=== PATIENT | female | born 1960 | race Caucasian/White ===

== ENCOUNTER 2020-05-21 23:18 | Emergency (ER) | payer BC ==
[2020-05-21 23:29] VITALS: BP 131/77; PULSE 101
[2020-05-21] MEDS ORDERED: Ondansetron 4 MG/2 ML SDV IVPUSH ONE (23:30)
[2020-05-21] MEDS ORDERED: Sodium Chloride 0.9% 1,000 ML IV ONE (23:31)
[2020-05-21] MEDS ORDERED: HYDROmorphone 1 MG/ML Syringe IVPUSH ONE (23:45)
[2020-05-21 23:54] LABS: ANION GAP 13.6 mEq/L (7-13); CHLORIDE,CL 101 mmol/L (98-107); SODIUM,NA 138 mmol/L (136-145)
--- NOTE | 2020-05-21 23:55 | EDM.PDOC ---
ED HPI GENERAL MEDICAL PROBLEM - General Chief Complaint: Abdominal Pain Stated Complaint: ABD PAIN Time Seen by Provider: 05/21/20 23:23 Source of Information: Reports: Patient, RN History Limitations: Reports: No Limitations - History of Present Illness INITIAL COMMENTS - FREE TEXT/NARRATIVE: Patient presents to the ER with abdominal cramping that began about 6 hours. Patient reports she was okay all day and had supper about 5 PM and pain began one hour later. She reports nausea and vomiting. She vomited about 100 mls in the ER. Denies any diarrhea or constipation. Reports she ate pizza, carrots and cucumbers for supper. States nobody at home is sick. Denies any fevers or chills, shortness of breath, palpitations or chest pain.Reports a surgical history of hysterectomy one year ago. Still has her appendix and gallbladder.Denies any history of abdominal problems. No pain Modalities implemented at home. Right Lower Abdomen Pain Score (Numeric/FACES): 10 - Related Data Allergies Allergy/AdvReac Type Severity Reaction Status Date / Time No Known Allergies Allergy Verified 05/21/20 23:27 Home Meds: Home Meds Venlafaxine HCl [Venlafaxine ER] 37.5 mg PO DAILY 05/21/20 [History] Past Medical History - Past Health History Medical/Surgical History: Denies Medical/Surgical History Social & Family History - Tobacco Use Smoking Status *Q: Never Smoker Second Hand Smoke Exposure: No - Recreational Drug Use Recreational Drug Use: No ED ROS GENERAL - Review of Systems Review Of Systems: Comprehensive ROS is negative, except as noted in HPI. ED EXAM, GI/ABD - Physical Exam Exam: See Below Exam Limited By: No Limitations General Appearance: Alert, Moderate Distress Respiratory/Chest: No Respiratory Distress Cardiovascular: Normal Peripheral Pulses, Regular Rate, Rhythm, No Edema, No Gallop, No JVD, No Murmur, No Rub GI/Abdominal Exam: Normal Bowel Sounds, Soft, Guarding, Tender (with ligh palpation to the lower/ periumbilical area) (Female) Exam: Deferred Rectal (Female) Exam: Deferred Extremities: Normal Inspection Neurological: Alert, Oriented Psychiatric: Anxious (due to pain) Skin Exam: Warm Lymphatic: No Adenopathy Course - Vital Signs Last Recorded V/S: Last Vital Signs Temp 97 F 09/03/20 23:21 Pulse 101 H 05/21/20 23:21 Resp 20 05/21/20 23:21 BP 131/77 05/21/20 23:21 Pulse Ox 96 05/21/20 23:21 - Orders/Labs/Meds Orders: Active Orders 24 hr Category Date Time Status DRUG SCREEN URINE BIORAD [URCHEM] Stat Lab 05/21/20 23:38 Ordered UA W/SRUTHI RFLX IF INDICATED [URIN] Stat Lab 05/21/20 23:38 Ordered D5 1/2 NS w/ 20 mEq/L KCl 1,000 ml Med 05/22/20 01:45 Active IV ASDIRECTED Medication Orders Potassium Chloride/Dextrose/Sod Cl (D5 1/2 Ns W/ 20 Meq/L Kcl) 1,000 mls @ 150 mls/hr IV ASDIRECTED KOKO Last Admin: 05/22/20 02:08 Dose: 150 mls/hr Documented by: BEN Labs: Laboratory Tests 05/21/20 05/21/20 Range/Units 23:30 23:30 WBC 9.9 (5.0-10.0) 10^3/uL RBC 4.66 (4.2-5.4) 10^6/uL Hgb 14.2 (12.0-16.0) g/dL Hct 42.6 (37.0-47.0) % MCV 91.4 (80-100) fL MCH 30.5 (27.0-34.0) pg MCHC 33.3 (33.0-35.0) g/dL Plt Count 198 (150-450) 10^3/uL Neut % (Auto) 82.6 H (42.2-75.2) % Lymph % (Auto) 12.4 L (20.5-50.1) % Saunders % (Auto) 4.8 (2-8) % Eos % (Auto) 0.1 L (1.0-3.0) % Baso % (Auto) 0.1 (0.0-1.0) % Sodium 138 (136-145) mmol/L Potassium 3.6 (3.5-5.1) mmol/L Chloride 101 (98-107) mmol/L Carbon Dioxide 27 (21-32) mmol/L Anion Gap 13.6 H (7-13) mEq/L BUN 15 (7-18) mg/dL Creatinine 0.89 (0.55-1.02) mg/dL Est Cr Clr Drug Dosing 58.77 mL/min Estimated GFR (MDRD) > 60 BUN/Creatinine Ratio 16.9 (No establ ref range) Glucose 164 H (74-99) mg/dL Calcium 8.7 (8.5-10.1) mg/dL Total Bilirubin 0.4 (0.2-1.0) mg/dL AST 26 (15-37) U/L ALT 55 (14-59) U/L Alkaline Phosphatase 95 (46-116) U/L Total Protein 7.8 (6.4-8.2) g/dL Albumin 4.0 (3.4-5.0) g/dL Globulin 3.8 Albumin/Globulin Ratio 1.1 Meds: Medications Generic Name Dose Route Start Last Admin Trade Name Freq PRN Reason Stop Dose Admin Potassium Chloride/Dextrose/Sod Cl 1,000 mls @ 150 mls/hr 05/22/20 01:45 05/22/20 02:08 D5 1/2 Ns W/ 20 Meq/L Kcl IV 150 mls/hr ASDIRECTED KOKO Administration Discontinued Medications Generic Name Dose Route Start Last Admin Trade Name Freq PRN Reason Stop Dose Admin Hydromorphone HCl 0.5 mg 05/21/20 23:45 05/21/20 23:50 Dilaudid IVPUSH 05/21/20 23:46 0.5 mg ONETIME ONE Administration Hydromorphone HCl 0.5 mg 05/22/20 00:11 05/22/20 00:27 Dilaudid IVPUSH 05/22/20 00:12 0.5 mg ONETIME ONE Administration Hydromorphone HCl 1 mg 05/22/20 01:30 05/22/20 01:40 Dilaudid IVPUSH 05/22/20 01:31 1 mg ONETIME ONE Administration Sodium Chloride 1,000 mls @ 999 mls/hr 05/21/20 23:31 05/21/20 23:34 Normal Saline IV 05/22/20 00:31 999 mls/hr .BOLUS ONE Administration Iopamidol 100 ml 05/22/20 00:05 05/22/20 00:08 Isovue-300 (61%) IVPUSH 05/22/20 00:06 100 ml ONETIME ONE Administration Ondansetron HCl 4 mg 05/21/20 23:30 05/21/20 23:35 Zofran IVPUSH 05/21/20 23:31 4 mg ONETIME ONE Administration - Re-Assessments/Exams Free Text/Narrative Re-Assessment/Exam: Reviewed exam Findings and lab results with patient. Dilaudid 0.5 mg x 2 and 1 mg administered with IV fluids. CT scan abdomen done and results reviewed with patient. Consulted [facility] and [facility] one call and there were no beds available. NG tube placed. Called [facility] one call and review patient's case with who [id number] her for transfer. Patient in agreement to plan. Departure - Departure Time of Disposition: 03:08 Disposition: DC/Tfer to Acute Hospital 02 Condition: Fair Clinical Impression: SBO (small bowel obstruction) - Discharge Information Forms: ED Department Discharge, Interfacility Transfer ISA Sepsis Event Note (ED) - Evaluation Sepsis Screening Result: No Definite Risk - Focused Exam Vital Signs: Vital Signs Temp Pulse Resp BP Pulse Ox 05/21/20 23:21 97 F 101 H 20 131/77 96 - My Orders Last 24 Hours: My Active Orders 05/21/20 23:38 DRUG SCREEN URINE BIORAD [URCHEM] Stat UA W/SRUTHI RFLX IF INDICATED [URIN] Stat 05/22/20 01:45 D5 1/2 NS w/ 20 mEq/L KCl 1,000 ml IV ASDIRECTED - Assessment/Plan Last 24 Hours: My Active Orders 05/21/20 23:38 DRUG SCREEN URINE BIORAD [URCHEM] Stat UA W/SRUTHI RFLX IF INDICATED [URIN] Stat 05/22/20 01:45 D5 1/2 NS w/ 20 mEq/L KCl 1,000 ml IV ASDIRECTED
[2020-05-22] MEDS ORDERED: Iopamidol 612 MG/ML 100 ML Bottle IVPUSH ONE (00:05)
[2020-05-22] MEDS ORDERED: HYDROmorphone 0.5 MG/0.5 ML Syringe IVPUSH ONE (00:11)
--- NOTE | 2020-05-22 01:20 | CT ---
PROCEDURE INFORMATION: Exam: CT Abdomen And Pelvis With Contrast Exam date and time: 05/22/2020 12:07 AM Age: 59 years old Clinical indication: Vomiting and other: Pain; Additional info: Lower abdomen TECHNIQUE: Imaging protocol: Computed tomography of the abdomen and pelvis with intravenous contrast. Radiation optimization: All CT scans at this facility use at least one of these dose optimization techniques: automated exposure control; mA and/or kV adjustment per patient size (includes targeted exams where dose is matched to clinical indication); or iterative reconstruction. Contrast material: [id number]; Contrast volume: 75 ml; Contrast route: INTRAVENOUS (IV); COMPARISON: CT Abdomen Pelvis w Cont 10/28/2016 8:55 AM FINDINGS: Liver: 6.9 x 7.1 cm large RIGHT hepatic lobe hemangioma. 7 mm low-attenuation lesion within segment 6 of the liver (image 62, series 2), likely small hemangioma. Images from prior MRI dated 11/02/2016 are not available for review. Recommend correlation with MRI. Gallbladder and bile ducts: Normal. No calcified stones. No ductal dilation. Pancreas: Normal. No ductal dilation. Spleen: Normal. No splenomegaly. Adrenals: Normal. No mass. Kidneys and ureters: Normal. No hydronephrosis. Stomach and bowel: Fluid-filled dilated loops of small bowel with transition point within the lower mid abdomen. Distal small bowel is decompressed. Appendix: Appendix is visualized and is normal. Intraperitoneal space: Small amount of free fluid within the pelvis. Vasculature: Unremarkable. No abdominal aortic aneurysm. Lymph nodes: Unremarkable. No enlarged lymph nodes. Bladder: Unremarkable as visualized. Reproductive: Status post interval hysterectomy. Bones/joints: Degenerative changes throughout the visualized thoracic and lumbar spine. Soft tissues: Unremarkable. IMPRESSION: 1. Findings consistent with small bowel obstruction as described above. 2. No CT findings of acute appendicitis. 3. 6.9 x 7.1 cm large RIGHT hepatic lobe hemangioma. 7 mm low-attenuation lesion within segment 6 of the liver (image 62, series 2), likely small hemangioma. Images from prior MRI dated 11/02/2016 are not available for review. Recommend correlation with MRI. 4. Status post interval hysterectomy. 5. Small amount of free fluid within the pelvis.
[2020-05-22] MEDS ORDERED: HYDROmorphone 1 MG/ML Syringe IVPUSH ONE ×2 (01:30→03:31)
[2020-05-22] MEDS ORDERED: D5 1/2 NS w/ 20 mEq/L KCl 1,000 ML IV SCH (01:45)
== END 2020-05-22 03:51 ==
LOC: DL.ED 23:18
DX: K56.609 Unspecified intestinal obstruction, unspecified as to partial versus complete obstruction (principal); Z79.899 Other long term (current) drug therapy
CPT/HCPCS: 36415; 43752; 74177; 80053; 85025; 96361; 96365; 96366; 96375; 96376; 99285; J1170; J2405; J3480; J7030; Q9967

== ENCOUNTER 2021-01-27 06:30 | Day surgery (SDC) | payer BC ==
[~2021-01-27 06:30] MED LIST: Dextrose 5%-0.45% NaCl 1,000 ML IV SCH; Midazolam 1 MG/ML 2 ML SDV ONE; Sodium Chloride 0.9% 10 ML Syringe FLUSH PRN; fentaNYL 100 MCG/2 ML SDV ONE
[2021-01-27] MEDS ORDERED: Midazolam 1 MG/ML 2 ML SDV IV ONE ×7 (06:31→07:08)
[2021-01-27] MEDS ORDERED: fentaNYL 100 MCG/2 ML SDV IV ONE ×4 (06:31→07:11)
--- NOTE | 2021-01-27 08:00 | OR ---
DATE: 01/27/2021 PROCEDURES: Total colonoscopy, NBI, and cold snare polypectomy. INSTRUMENT USED: [id number]-[id number] Olympus video colonoscope. PREMEDICATIONS: Fentanyl 125 mcg intravenous, Versed 4 mg intravenous. The procedure was done under pulse oximetry, BP recording, and equipment monitor phototypesetting. INDICATION: The patient with positive FIT. Colonoscopic examination is done for detection of any polypoid lesions and removal, endoscopic hemostasis therapy if needed. DESCRIPTION OF PROCEDURE: Initial rectal exam was unremarkable. Rigid anoscopy was normal. The colonoscope was passed with ease up to the ileocecal area. Photographs were taken of the normal-appearing cecum identified by appendiceal orifice and double-bulged ileocecal folds. No bleeding was noted from any of the visualized areas at the commencement of the examination. The bowel preparation was found to be adequate, [place] scale 2 in the right colon, 3 in transverse and left colon, total score 8. No stricture. No vascular ectasia. No large isolated ulcerations seen. No evidence of diffuse inflammatory bowel disease in the form of friability, contact bleeding, or ulcerations. In the mid ascending colon, diminutive benign-appearing polyp was noted, NBI views were obtained, photographs were taken, cold snare polypectomy was done, the tissue was retrieved and sent for histopathology. Probing the proximal sides of folds and flexures using adequate distention and clearing up the stool material, withdrawal of the scope was made, cecum to rectum time over 6 minutes. No bleeding was noted from any of the visualized areas at the completion of examination. IMPRESSION: Diminutive ascending colon polyps. The patient tolerated the procedure well. [facility] /[id number]
[2021-01-27 09:47] VITALS: BP 124/78; PULSE 51
== END 2021-01-27 09:26 | disposition home or self-care (01) ==
LOC: DL.ENDO 06:30
PROVIDERS: ATTEND Internal Medicine Gastroenterology
DX: D12.2 Benign neoplasm of ascending colon (principal); Z98.890 Other specified postprocedural states
CPT/HCPCS: 36415; 82565; J2250; J3010; J7042

== ENCOUNTER 2022-02-06 09:12 | Emergency (ER) | payer BC ==
[2022-02-06] MEDS ORDERED: Amoxicillin 500 MG Cap PO ONE (09:13)
[2022-02-06 09:42] VITALS: BP 119/66; PULSE 80
[2022-02-06] MEDS ORDERED: Amoxicillin 500 MG Cap ONE (09:55)
== END 2022-02-06 10:03 | disposition home or self-care (01) ==
LOC: DL.ED 09:12
DX: J02.0 Streptococcal pharyngitis (principal)
CPT/HCPCS: 87430; 99282; A9270